=== PATIENT | female | born 1930 | race Caucasian/White ===

== ENCOUNTER 2017-07-18 07:49 | Outpatient (CLI) | payer MEDICARE ==
--- NOTE | 2017-07-18 09:23 | ULT ---
ABDOMINAL ULTRASOUND: Date: 07-18-17 Comparison: None. History: Epigastric pain. Abnormal weight loss. Technique: Multiplanar grayscale sonographic imaging of the abdomen obtained. FINDINGS: The imaged IVC and aorta appear grossly unremarkable. The pancreas is not well visualized secondary t o body habitus and bowel gas. Patient reports a history of cholecystectomy. The hepatic parenchyma is echogenic and heterogeneous suggesting hepatocellular disease, which may re flect steatosis. This limits assessment for focal liver lesion and intrahepatic biliary dilatation. The CBD measures in the 3-4 mm range, within normal limits. The right kidney measures 9.5 cm in craniocaudal dimension and is mildly echogenic with mild cortical thinning. No right sided hydronephrosis. The left kidney measures 8.9 cm in craniocaudal dimension and demonstrates increased echogenicity and cortical thinning. The spleen is grossly unremarkable, partially obscured by bowel gas, measuring up to 8.5 cm. IMPRESSION: 1. Increased echogenicity and heterogeneity of the hepatic parenchyma as detailed above, a nonspecifi c finding. 2. Both kidneys are mildly echogenic and demonstrate cortical thinning. Question history of renal med ial disease. 3. Status post cholecystectomy. POS: [facility]
== END 2017-07-18 07:50 | disposition home or self-care (01) ==
LOC: ULT 07:49
PROVIDERS: ATTEND Family Medicine
DX: R10.13 Epigastric pain (principal); R63.4 Abnormal weight loss; N28.89 Other specified disorders of kidney and ureter; Z90.49 Acquired absence of other specified parts of digestive tract
CPT/HCPCS: 76700

== ENCOUNTER 2017-08-02 07:38 | Outpatient (CLI) | payer MEDICARE ==
[2017-08-02] MEDS ORDERED: Iopamidol 370 76% 100 ML VIAL ONE (17:04)
== END 2017-08-02 07:39 | disposition home or self-care (01) ==
LOC: BICCT 07:38
PROVIDERS: ATTEND Internal Medicine Gastroenterology
DX: K21.9 Gastro-esophageal reflux disease without esophagitis (principal); R11.0 Nausea; R10.12 Left upper quadrant pain; R63.4 Abnormal weight loss; R93.3 Abnormal findings on diagnostic imaging of other parts of digestive tract; K57.90 Diverticulosis of intestine, part unspecified, without perforation or abscess without bleeding
CPT/HCPCS: 74177

== ENCOUNTER 2017-10-15 10:30 | Outpatient (CLI) | payer MEDICARE | END 2017-10-15 10:31 | disposition home or self-care (01) | LOC: BICMAMMO 10:30 | PROVIDERS: ATTEND Family Medicine | DX: Z12.31 Encounter for screening mammogram for malignant neoplasm of breast (principal) | CPT/HCPCS: 77063; 77067 ==

== ENCOUNTER 2018-11-05 12:28 | Outpatient (CLI) | payer MEDICARE ==
--- NOTE | 2018-11-05 13:10 | MMO ---
Bilateral MAMMO Bilat Screen [facility]. CLINICAL HISTORY: Patient is 88 years old and is seen for screening. The patient has no family history of breast cancer. The patient has no personal history of cancer. VIEWS: The views performed were: bilateral craniocaudal with tomosynthesis and bilateral mediolateral oblique with tomosynthesis. FILMS COMPARED: The present examination has been compared to prior imaging studies performed at [facility] on 08/25/2011, 08/03/2015, 08/29/2016 and 10/15/2017. MAMMOGRAM FINDINGS: There are scattered fibroglandular densities. There are stable benign appearing calcifications seen in both breasts. There are also vascular calcifications. There are no suspicious masses, suspicious calcifications, or new areas of architectural distortion. IMPRESSION: THERE IS NO MAMMOGRAPHIC EVIDENCE OF MALIGNANCY. A ROUTINE FOLLOW-UP MAMMOGRAM IN 1 YEAR IS RECOMMENDED. THE RESULTS OF THIS EXAM WERE SENT TO THE PATIENT. ACR BI-RADS Category 2 - Benign finding MAMMOGRAPHY NOTE: 1. A negative mammogram report should not delay a biopsy if a dominant of clinically suspicious mass is present. 2. Approximately 10% to 15% of breast cancers are not detected by mammography. 3. Adenosis and dense breasts may obscure an underlying neoplasm.
== END 2018-11-05 12:29 | disposition home or self-care (01) ==
LOC: BICMAMMO 12:28
PROVIDERS: ATTEND Family Medicine
DX: Z12.31 Encounter for screening mammogram for malignant neoplasm of breast (principal)
CPT/HCPCS: 77063; 77067